=== PATIENT | female | born 1965 | race Caucasian/White ===

== ENCOUNTER 2025-07-29 08:58 | Outpatient (AMB) | payer OTHER, SELFPAY ==
--- NOTE | 2025-07-29 08:57 | A.PHYSOV_ITS ---
Vital Signs 07/29/25 09:01 Height 5 ft 6 in Weight 285 lb BMI 46.0 Intake Visit Reasons: Bilateral knee injections Intake Note: Patient is a 59 year old male here today for bilateral knee injections Allergies poppyseed oil Allergy (Severe, Verified 07/29/25 09:02) SWELLING codeine (Codeine) Allergy (Mild, Verified 07/29/25 09:02) ITCH lactose (Lactose) Adverse Reaction (Mild, Verified 07/29/25 09:02) DIARRHEA PFSH Surgical History (Updated 07/29/25 @ 09:01 by Angie Ornelas MA) History of sinus surgery History of thyroidectomy H/O shoulder surgery Social History (Updated 07/29/25 @ 09:01 by Angie Ornelas MA) Alcohol intake: current Alcohol intake frequency: holidays/special occasions only Patient Tobacco Use Status: Former Tobacco user Use of substances other than those prescribed or required for medical reasons: No Current occupational status: employed Physical Exam Vital Signs: BMI result Body Mass Index 46.0 Office Procedures AMB Knee Injection AMB Knee Injection Procedure Details: Bilateral Knee injection: The risks, benefits and complications of the left knee injection were discussed with the patient including but not limited to increased serum glucose, infection, nerve pain, fat atrophy, pigment augmentation, bleeding and pain. All questions were answered to the patient's satisfaction. Verbal consent was obtained. The patient was eager to proceed. Using aseptic technique with Betadine, ethyl chloride was then used to desensitize the skin. Using a 22-gauge needle 40 mg of Kenalog and 3 mL 2% lidocaine were injected into the knee joint. A Band-Aid was applied. Patient tolerated the procedure well without immediate complication. Postinjection instructions were given. The procedure was repeated on the right. Knee Injection - : Bilateral All charges added?: Procedure code (CPT) selection complete Office Meds Kenalog 40 mg/mL suspension for injection Performing Provider: LISA Herrera [facility] Administered by: LISA Herrera on 07/29/25 09:21 Dose Route Admin Location Dispensed Lot Number Expiration Date NDC Time Study Technician 40 mg intra-articular 1 mL [address]-5 [employer] Total Dispensed Waste 1 mL 0 % lidocaine (PF) 20 mg/mL (2 %) injection solution Performing Provider: LISA Herrera Performing Location: [facility] Administered by: LISA Herrera on 07/29/25 09:21 Dose Route Admin Location Dispensed Lot Number Expiration Date [facility] Time Study Technician 60 mg intra-articular 50 mL 5030-6507-28 Total Dispensed Waste 50 mL 0 % Assessment & Plan Assessment & Plan (1) Bilateral primary osteoarthritis of knee: Code(s): M17.0 - Bilateral primary osteoarthritis of knee Category: Medical Plan Ms. Duarte is a 59-year-old female seen in evaluation today for bilateral knee osteoarthritis. Today she consented to bilateral knee corticosteroid injection. She was given post-injection instructions, recommend: Moist heat compresses for 15 minutes up to 5 times daily. Continue low-impact activities such as walking, biking and swimming. Follow-up with our office as needed. Thank you for allowing me to participate in the care of your patient. Orders: Orders AMB Knee Injection Today M17.0 - Bilateral primary osteoarthritis of knee Coding Level of Care Code Procedure Only Diagnoses Bilateral primary osteoarthritis of knee M17.0 CPT Codes AMB Knee Injection - Hip/Bursa Injection - : Bilateral ([id number])
[2025-07-29 09:01] VITALS: BMI 46.0
== END 2025-07-29 09:45 | disposition home or self-care (01) ==
LOC: HO.HPHYS 08:58
PROVIDERS: PCP Internal Medicine; Visit Provider Physician Assistant
DX: M17.0 Bilateral primary osteoarthritis of knee (principal)
CPT/HCPCS: 20610

== ENCOUNTER → 2025-07-29 08:58 | Outpatient (BNVA) | payer OTHER, SELFPAY | PROVIDERS: PCP Internal Medicine; Visit Provider Physician Assistant | DX: M17.0 Bilateral primary osteoarthritis of knee (principal) | CPT/HCPCS: 20610; J2003; J3301 ==